=== PATIENT | male | born 1980 ===

== ENCOUNTER 2022-09-21 16:35 | Emergency (ER) | payer SELFPAY ==
[~2022-09-21] VITALS: Ht 167.6 cm; Wt 75.3 kg
[2022-09-21 16:36] VITALS: BP 154/112
== END 2022-09-21 21:54 | disposition left against medical advice (07) ==
LOC: M ED 16:35
DX: R51.9 Headache, unspecified (principal); Z53.21 Procedure and treatment not carried out due to patient leaving prior to being seen by health care provider